=== PATIENT | male | born 1935 | race Native Hawaiian/Other Pacific Islander ===

== ENCOUNTER 2019-04-01 19:28 | Emergency (ER) | payer OTHER ==
[~2019-04-01] VITALS: Ht 177.8 cm; Wt 93.9 kg
[2019-04-01 19:40] LABS: PLATELET COUNT 190 K/uL (142-355)
[2019-04-01 19:49] LABS: POTASSIUM 3.9 mmol/L (3.6-5.2)
[2019-04-01 21:18] VITALS: BP 127/70; TEMP 97.9
[2019-04-01] MEDS ORDERED: ASPIRIN REGULA325 MG PO (22:40)
[2019-04-01] MEDS ORDERED: LISI10TA11 PO (22:50)
[2019-04-01] MEDS ORDERED: THIA100T8 PO (22:51)
[2019-04-01] MEDS ORDERED: MULT VITAMI1 PO (22:51)
[2019-04-01] MEDS ORDERED: ASCO500T18 PO (22:52)
[2019-04-01] MEDS ORDERED: TRESIBA100 UNIT/M SC (22:57)
[2019-04-01] MEDS ORDERED: INSU100P SC (22:57)
[2019-04-01] MEDS ORDERED: LIPITOR20 MG PO (22:58)
[2019-04-01] MEDS ORDERED: ATROVENT 0.06% NAS (23:02)
[2019-04-01] MEDS ORDERED: LORA1TAB17 PO (23:02)
[2019-04-01] MEDS ORDERED: DULCOLAX5 MG PO (23:06)
[2019-04-01] MEDS ORDERED: BISACODYL LAXAT10 MG RE (23:07)
[2019-04-01] MEDS ORDERED: ANTIFUNGAL EX (23:09)
[2019-04-14] MEDS ORDERED: OXCARBAZEPIN300 MG PO (19:33)
[2019-04-14] MEDS ORDERED: MEMA5TAB PO (19:33)
[2019-04-14] MEDS ORDERED: ESCI10TA PO (19:34)
[2019-04-14] MEDS ORDERED: DONE5TAB PO (19:34)
[2019-04-18] MEDS ORDERED: LORA1TAB17 PO (19:51)
[2019-05-04] MEDS ORDERED: MEMA5TAB PO (14:11)
[2019-05-04] MEDS ORDERED: MAGN400T4 PO (14:12)
[2019-05-04] MEDS ORDERED: DIVALPROEX500 MG PO (14:12)
[2019-05-04] MEDS ORDERED: DONE5TAB PO (14:12)
== END 2019-04-01 21:20 | disposition other institution (70) ==
LOC: ED 19:28
PROVIDERS: Family Medicine
DX: F03.91 Unspecified dementia, unspecified severity, with behavioral disturbance (principal); R00.1 Bradycardia, unspecified; Z04.6 Encounter for general psychiatric examination, requested by authority
CPT/HCPCS: 80053; 85027; 93005; 99285

== ENCOUNTER 2020-05-22 19:38 | Emergency (ER) | payer OTHER ==
[~2020-05-22] VITALS: Ht 177.8 cm; Wt 88.9 kg
[~2020-05-22 19:38] MED LIST: ANTIFUNGAL EX; ASCO500T18 PO; ASPIRIN REGULA325 MG PO; ATROVENT 0.06% NAS; BISACODYL LAXAT10 MG RE; DIVALPROEX500 MG PO; DONE5TAB PO; DULCOLAX5 MG PO; ESCI10TA PO; INSU100P SC; LIPITOR20 MG PO; LISI10TA11 PO; LORA1TAB17 PO; MAGN400T4 PO; MEMA5TAB PO; MULT VITAMI1 PO; OXCARBAZEPIN300 MG PO; THIA100T8 PO; TRESIBA100 UNIT/M SC
[2020-05-22 20:34] LABS: PLATELET COUNT 175 K/uL (142-355)
[2020-05-22 20:48] LABS: POTASSIUM 3.8 mmol/L (3.6-5.2)
[2020-05-22 22:38] VITALS: BP 159/72; TEMP 98.7
[2020-05-22] MEDS ORDERED: ARNUITY EL50 MCG/ACT INH (23:34)
[2020-05-22] MEDS ORDERED: VITAMIN D50000 UNIT PO (23:36)
[2020-05-22] MEDS ORDERED: SV MELATONIN5 MG PO (23:37)
[2020-05-22] MEDS ORDERED: LORA1TAB17 PO (23:38)
[2020-05-22] MEDS ORDERED: [UNRECOGNIZED DRUG - OTHER] EX (23:40)
[2020-05-22] MEDS ORDERED: MICONAZOLE24 TOP (23:42)
== END 2020-05-22 22:38 | disposition other institution (70) ==
LOC: ED 19:38
PROVIDERS: Family Medicine
DX: F03.91 Unspecified dementia, unspecified severity, with behavioral disturbance (principal); R45.1 Restlessness and agitation; Z11.59 Encounter for screening for other viral diseases; Z04.6 Encounter for general psychiatric examination, requested by authority
CPT/HCPCS: 36415; 80053; 81000; 85027; 87635; 93005; 99285; U0003